=== PATIENT | female | born 1965 | race Caucasian/White ===

== ENCOUNTER 2022-01-26 14:15 | Emergency (ER) | payer OTHER ==
[~2022-01-26] VITALS: Ht 152.4 cm; Wt 45.4 kg
--- NOTE | 2022-01-26 14:40 | NUR ---
Pt.was seen by .family members at bedside,was updated with pt.condition and plan of care.
[2022-01-26] MEDS ORDERED: IV NORMAL SALINE 1000 ML BAG IV ONE (15:00)
[2022-01-26] MEDS ORDERED: KETOROLAC TROMETHAMINE 15 MG INJ IVP ONE (15:00)
[2022-01-26] MEDS ORDERED: DIAZEPAM 10 MG/2 ML DISP.SYRIN IV ONE (15:00)
[2022-01-26] MEDS ORDERED: KETOROLAC TROMETHAMINE 15 MG INJ ONE (15:13)
[2022-01-26] MEDS ORDERED: DIAZEPAM 10 MG/2 ML DISP.SYRIN ONE (15:14)
[2022-01-26] MEDS ORDERED: CYCL5TAB PO (16:23)
[2022-01-26] MEDS ORDERED: IBUP-1955 PO (16:23)
--- NOTE | 2022-01-26 16:52 | NUR ---
awaiting for tracy from [place].
--- NOTE | 2022-01-26 16:58 | NUR ---
Abdominal binder appl.per order.
[2022-01-26 17:01] VITALS: BP 106/62
== END 2022-01-26 17:05 | disposition home or self-care (01) ==
LOC: ER 14:15
DX: M62.830 Muscle spasm of back (principal); S90.812A Abrasion, left foot, initial encounter; S90.811A Abrasion, right foot, initial encounter; S80.811A Abrasion, right lower leg, initial encounter; W20.8XXA Other cause of strike by thrown, projected or falling object, initial encounter; Y92.013 Bedroom of single-family (private) house as the place of occurrence of the external cause
CPT/HCPCS: 73590; 73630 ×2; 96361; 96374; 96375; 99284; J1885; J3360; J7040; A4663